=== PATIENT | female | born 1985 | race African-American/Black ===

== ENCOUNTER 2018-05-10 21:28 | Emergency (ER) | payer SELFPAY ==
[~2018-05-10] VITALS: Ht 172.7 cm; Wt 64.1 kg
[2018-05-11] MEDS ORDERED: PREDNISONE 20MG TABLET PO ONE (01:00)
[2018-05-11] MEDS ORDERED: IPRATROPIUM/ALBUTEROL 0.5-3(2.5)MG/3ML NEB HHN ONE (01:00)
[2018-05-11] MEDS ORDERED: AZITHROMYCIN 500 MG TABLET PO ONE (01:00)
[2018-05-11 01:39] VITALS: BP 126/50
== END 2018-05-11 01:41 | disposition home or self-care (01) ==
LOC: ER 21:28
DX: J40 Bronchitis, not specified as acute or chronic (principal); R07.89 Other chest pain; R03.0 Elevated blood-pressure reading, without diagnosis of hypertension
CPT/HCPCS: 94640; 99283; J7512; J7620; Z7610